=== PATIENT | male | born 1970 | race Caucasian/White ===

== ENCOUNTER 2017-02-22 11:53 | Emergency (ER) | payer BC ==
--- NOTE | 2017-02-22 12:29 | ERPHSYRPT ---
- History of Present Illness Time Seen by Provider: 02/22/17 12:23 Source: patient, family Exam Limitations: no limitations Patient Subjective Stated Complaint: caught 3rd digit left hand in a door last night Triage Nursing Assessment: hematoma noted under nailbed of third digit left hand. Physician History: The patient is a 46-year-old right-handed male with his complaining that he smashed the end of his left middle finger yesterday evening in a car door and now has a throbbing sensation under the fingernail. The fingernail gradually developed a hematoma and was throbbing all night. They have a [address] back home to [place] and would like some relief before the drive. His past medical history significant for hypertension. Occurred: yesterday Method of Injury: direct blow Quality: constant Severity of Pain-Max: moderate Severity of Pain-Current: moderate Extremities Pain Location: 3rd finger: left Modifying Factors: Improves With: nothing Allergies/Adverse Reactions: No Known Drug Allergies Allergy (Unverified 02/22/17 12:06) Home Medications: Fluticasone Propionate [Flonase Allergy Relief] 15.8 ml NS DAILY 02/22/17 [ History] Hydrochlorothiazide 12.5 mg PO DAILY 02/22/17 [History] Lisinopril 20 mg [Zestril 20 MG] 20 mg PO DAILY 02/22/17 [History] Testosterone [Androgel] 75 gm TD DAILY 02/22/17 [History] Hx Tetanus, Diphtheria Vaccination/Date Given: Yes Hx Influenza Vaccination/Date Given: Yes Hx Pneumococcal Vaccination/Date Given: No - Review of Systems Constitutional: No Fever, No Chills Eyes: No Symptoms Ears, Nose, & Throat: No Symptoms Respiratory: No Cough, No Dyspnea Cardiac: No Chest Pain, No Edema, No Syncope Abdominal/Gastrointestinal: No Abdominal Pain, No Nausea, No Vomiting, No Diarrhea Genitourinary Symptoms: No Dysuria Musculoskeletal: Injury Skin: No Rash Neurological: No Dizziness, No Focal Weakness, No Sensory Changes Psychological: No Symptoms Endocrine: No Symptoms Hematologic/Lymphatic: No Symptoms Immunological/Allergic: No Symptoms All Other Systems: Reviewed and Negative - Past Medical History Pertinent Past Medical History: Yes Cardiac History: Hypertension Other Medical History: low testosterone, allergies - Past Surgical History Past Surgical History: Yes Musculoskeletal: Orthopedic Surgery Other Surgical History: carpal tunnel, ankle - Social History Smoking Status: Never smoker Exposure to second hand smoke: No Drug Use: none Patient Lives Alone: No - Nursing Vital Signs Nursing Vital Signs: Initial Vital Signs Temperature 97.9 F 02/22/17 12:01 Pulse Rate 88 02/22/17 12:01 Respiratory Rate 20 02/22/17 12:01 Blood Pressure 163/94 02/22/17 12:01 O2 Sat by Pulse Oximetry 96 02/22/17 12:01 Pain Scale Pain Intensity 6 - Physical Exam General Appearance: alert Eyes, Ears, Nose, Throat Exam: moist mucous membranes Neck Exam: non-tender, supple Cardiovascular/Respiratory Exam: chest non-tender, normal breath sounds, regular rate/rhythm, no respiratory distress Abdominal Exam: non-tender, No guarding Back Exam: normal inspection, No vertebral tenderness Shoulder Exam: normal inspection Elbow/Forearm Exam: normal inspection Wrist Exam: normal inspection Hand Exam: ecchymosis (Examination of the left middle finger shows a hematoma under the fingernail. The area is tender to palpation. There is no swelling. There is no laceration.) Neuro/Tendon Exam: normal sensation, normal motor functions Mental Status Exam: alert, oriented x 3, cooperative Skin Exam: normal color, warm, dry SpO2 Interpretation: normal SpO2: 96 Oxygen Delivery: Room Air Procedures - Nail Trephination Nail Trephination Location: left middle finger Method of Drainage: nail cauterized Sterile Dressing Applied: Yes Finger Splint: No Progress: good drainage. - Radiology Exams Left Hand X-ray Interpretation: Interpreted by me, Negative, No Fracture Ordered Tests: Active Orders 24 hr Category Date Time Status FINGER(S) Stat Exams 02/22/17 12:29 Taken - Progress Progress: improved - Departure Time of Disposition: 13:56 Departure Disposition: Home Clinical Impression: Subungual hematoma of finger of left hand Condition: Stable Critical Care Time: No Additional Instructions: You had a hematoma under your fingernail of your left middle finger drained in the ER. Keep the area covered with a Band-Aid for one to 2 days. Take Tylenol and ibuprofen for pain as needed. Follow-up as needed.
[2017-02-22] MEDS ORDERED: BACIGUENT PACKET TP ONE (14:00)
[2017-02-22] MEDS ORDERED: BACIGUENT PACKET ONE (14:03)
[2017-02-22 14:08] VITALS: BP 148/87; PULSE 80; O2SAT 97
--- NOTE | 2017-02-22 14:59 | XRAY ---
Indication: Distal tip crush injury. Comparison: None 3 views of the left third finger obtained. No bony, articular, or soft tissue abnormalities.
== END 2017-02-22 14:09 | disposition home or self-care (01) ==
LOC: ED 11:53
DX: S60.032A Contusion of left middle finger without damage to nail, initial encounter (principal); W23.0XXA Caught, crushed, jammed, or pinched between moving objects, initial encounter
CPT/HCPCS: 73140; 99283; A9270-GY